=== PATIENT | female | born 1990 | race Caucasian/White ===

== ENCOUNTER 2017-07-25 12:38 | Inpatient (IN) | payer BC ==
[2017-07-25] VITALS (19 sets, daily range): BP systolic 106–130; BP diastolic 56–82
[~2017-07-25] VITALS: Ht 165.1 cm; Wt 110.0 kg
[2017-07-25] MEDS ORDERED: EXPECTA PRENAT1 EACH PO (13:06)
[2017-07-25 14:14] LABS: BASOPHIL (%) 0.3 % (0-1); BASOPHIL COUNT 0.1 K/uL (0-0.1); EOSINOPHIL (%) 0.9 % (0-5); EOSINOPHIL COUNT 0.1 K/uL (0-0.3); HEMATOCRIT 35.7 % (36.0-46.0); HEMOGLOBIN 12.2 G/DL (11.9-15.5); IMMATURE GRANULOCYTE (%) 0.9 % (0.0-0.7); LYMPHOCYTE (%) 19.2 % (15-42); LYMPHOCYTE COUNT 2.8 K/uL (1.0-2.8); MCHC 34.2 G/DL (30.0-36.0); MCV 90.8 FL (83-99); MONOCYTE (%) 5.8 % (3-12); MONOCYTE COUNT 0.9 K/uL (0-0.8); NEUTROPHIL (%) 72.9 % (45-76); NEUTROPHIL COUNT 10.7 K/uL (1.8-6.4); PLATELET COUNT 166 K/uL (156-360); RBC DIS.WIDTH-CV 12.3 % (11.8-14.6); RBC DIS.WIDTH-SD 40.7 % (39-53); RED BLOOD COUNT 3.93 M/uL (3.80-5.20); WHITE BLOOD COUNT 14.7 K/uL (4.1-10.2)
[2017-07-25 14:39] LABS: SOURCE URINE
[2017-07-25 15:32] LABS: GROUP B STREP NEGATIVE (NEGATIVE)
[2017-07-26] VITALS (7 sets, daily range): BP systolic 109–120; BP diastolic 53–64
[2017-07-26 00:34] LABS: BASE EXCESS -7.9 mEq/L (-3 to +3); BICARBONATE 22.3 mEq/L (22-26); CARBOXY HGB 1.9 % (0-5); COMMENTS - BLOOD GASES RN DRAW; METHEMOGLOBIN 1.6 % (0-1.5); PCO2 64 mm Hg (35-45); SITE VENOUS CORD GAS; pH 7.15 (7.35-7.45)
[2017-07-26 00:37] LABS: BASE EXCESS -5.1 mEq/L (-3 to +3); BICARBONATE 23.5 mEq/L (22-26); CARBOXY HGB 0.9 % (0-5); COMMENTS - BLOOD GASES RN DRAW; METHEMOGLOBIN 2.2 % (0-1.5); PCO2 56 mm Hg (35-45); SITE ARTERIAL CORD GAS
[2017-07-26 00:38] LABS: PO2 < 32 mm Hg (80-100); pH 7.23 (7.35-7.45)
[2017-07-27 07:19] VITALS: BP 121/62
[2017-07-27 14:39] VITALS: BP 118/67
[2017-07-28 12:39] LABS: CHLAMYDIA TRACHOMATIS NEGATIVE; NEISSERIA GONORRHOEAE NEGATIVE
== END 2017-07-27 17:07 | disposition home or self-care (01) | DRG 775 ==
LOC: LDRP-OP 12:38 → 2WEST 12:39 → LDRP-OP 09-28 09:48
PROVIDERS: Obstetrics & Gynecology Obstetrics
PROC: 00HU33Z Insertion of Infusion Device into Spinal Canal, Percutaneous Approach (ICD-10-PCS; principal; 2017-07-25)
PROC: 10E0XZZ Delivery of Products of Conception, External Approach (ICD-10-PCS; principal; 2017-07-25)
PROC: 3E033VJ Introduction of Other Hormone into Peripheral Vein, Percutaneous Approach (ICD-10-PCS; principal; 2017-07-25)
PROC: 3E0R3BZ Introduction of Anesthetic Agent into Spinal Canal, Percutaneous Approach (ICD-10-PCS; principal; 2017-07-25)
DX: O42.013 Preterm premature rupture of membranes, onset of labor within 24 hours of rupture, third trimester (principal); O60.14X0 Preterm labor third trimester with preterm delivery third trimester, not applicable or unspecified; O71.82 Other specified trauma to perineum and vulva; O99.214 Obesity complicating childbirth; E66.9 Obesity, unspecified; Z68.39 Body mass index [BMI] 39.0-39.9, adult; Z3A.34 34 weeks gestation of pregnancy; Z37.0 Single live birth; Z87.891 Personal history of nicotine dependence
CPT/HCPCS: 36600; 82803; 85025; 87086; 87491; 87591; 87653; 88307; C1755; J0702; J2540; J2795; J3010; J7120